=== PATIENT | male | born 1945 | race Caucasian/White ===

== ENCOUNTER 2016-11-18 09:58 | Outpatient (CLI) | payer OTHER | END 2016-11-18 09:59 | disposition home or self-care (01) | LOC: AMBL 09:58 | PROVIDERS: ATTEND Emergency Medicine | DX: R40.20 Unspecified coma (principal); R41.82 Altered mental status, unspecified; H57.8 Other specified disorders of eye and adnexa; E11.65 Type 2 diabetes mellitus with hyperglycemia; E66.9 Obesity, unspecified; I10 Essential (primary) hypertension ==